=== PATIENT | male | born 1965 | race Caucasian/White ===

== ENCOUNTER 2017-06-08 05:12 | Day surgery (SDC) | payer BC ==
[2017-05-25 15:54] VITALS: BMI 29.5
[2017-06-08] MEDS ORDERED: BUPIVACAINE HCL/PF 0.5% (5MG/ML) 10 ML VIAL ONE (09:34)
[2017-06-08] MEDS ORDERED: oxyCODONE HCL 5 MG TABLET PO PRN (09:46)
[2017-06-08] MEDS ORDERED: ONDANSETRON 4 MG/2 ML VIAL IVPUSH PRN (09:46)
[2017-06-08] MEDS ORDERED: PROMETHAZINE HCL 25 MG/1 ML VIAL IVPUSH PRN (09:46)
--- NOTE | 2017-06-08 09:49 | HP ---
[facility]ellite [facility] - Chief Complaint Chief Complaint: right knee pain - Past Medical History Allergies/Adverse Reactions: Allergies Allergy/AdvReac Type Severity Reaction Status Date / Time latex Allergy Verified 06/08/17 08:36 No Known Drug Allergies Allergy Verified 06/08/17 08:36 - Current Medications Current Medications: Home Medications Medication Instructions Recorded Multivitamin [Multiple Vitamins] 1 each PO DAILY 05/25/17 Oxycodone HCl/Acetaminophen 1 - 2 tab PO Q6H #30 tab MDD 8 06/08/17 [Percocet 5-325 mg Tablet -] Satellite Physical Exam - Physical Examination Vital Signs: Vital Signs Period Temp Pulse Resp BP Sys/Lindsey Pulse Ox Last 24 Hr 97 General Appearance: Well Nourished, Well Developed, Alert & Oriented x3 ENT: Clear Lung: Normal air movement Heart: Regular rate & rhythm Extremities: Other (right knee- + swelling, + ttp, decr rom, + mcmurrays, nvi MRI + mt) Neurological: Intact, Alert, Oriented Satellite Impression/Plan - Impression/Plan Impression: right knee internal derangement Operative Procedure: right knee arthroscopy Date to be Performed: 06/08/17
[2017-06-08] MEDS ORDERED: MIDAZOLAM HCL 2 MG/2 ML SINGLE DOSE VIAL ONE (09:55)
[2017-06-08] MEDS ORDERED: LACTATED RINGERS SOLUTION 1,000 ML IV SCH (10:00)
[2017-06-08] MEDS ORDERED: DEXAMETHASONE SOD PHOSPHATE 4 MG/1 ML VIAL ONE (10:07)
[2017-06-08] MEDS ORDERED: LIDOCAINE HCL/PF 2% SDV 5ML VIAL ONE (10:07)
[2017-06-08] MEDS ORDERED: KETOROLAC TROMETHAMINE 30 MG/1 ML VIAL ONE (10:07)
[2017-06-08] MEDS ORDERED: LIDOCAINE 1%/EPI 1:100000 (20 ML MULTI DOSE VIAL) INF ONE (10:13)
--- NOTE | 2017-06-08 10:43 | OP ---
Operative Note - Note: Operative Date: 06/08/17 ([facility]) Pre-Operative Diagnosis: right knee internal derangement Operation: right knee arthroscopy PMM, debridement chondroplasty trochlea and MFC Post-Operative Diagnosis: Same as Pre-op Surgeon: Turner Conklin Anesthesiologist/RN HEMO DIALYSIS: Galilea Flanagan MD Anesthesia: General, Local Specimens Removed: shavings Estimated Blood Loss (mls): 5 Operative Report Dictated: Yes
[2017-06-08 11:14] VITALS: TEMP 98.3
[2017-06-08 12:04] VITALS: BP 148/90; PULSE 86
--- NOTE | 2017-06-08 13:11 | OP ---
DATE OF OPERATION: 06/08/2017 PREOPERATIVE DIAGNOSIS: Internal derangement, right knee. POSTOPERATIVE DIAGNOSIS: Internal derangement, right knee. PROCEDURE: Arthroscopy, right knee, partial medial meniscectomy and chondroplasty, medial femoral condyle and trochlea. SURGICAL ATTENDING: Turner Conklin MD ANESTHESIA: General with LMA. CLOSURE: Nylon 4-0. COMPLICATIONS: None. CONDITION: To recovery in stable condition. DESCRIPTION OF PROCEDURE: Patient taken to the operating room June 08, 2017. General anesthesia with LMA was administered by the anesthesiologist. Right lower extremity was prepped and draped in the usual sterile fashion. The medial and lateral infrapatellar portal sites were infiltrated with 1% Xylocaine with epinephrine. Portals were then made with a 15 blade followed by a blunt trocar and the scope trocar was placed through the inferolateral portal up into the suprapatellar pouch. The knee was then inflated with a cocktail of 10 mL of 1% Xylocaine, 10 mL of 0.5% Marcaine and 20 mL of arthroscopic saline. After allowing that to sit for a while, we then proceeded with the procedure. The undersurface of the patella was found to be intact. The trochlea itself had some grade 2 changes. Any loose articular cartilage was debrided using a shaver. The medial and lateral gutters were visualized to be clean. With valgus stress on the knee, the medial compartment was entered and the medial meniscus was visualized, probed and found to have a complex tear of its posterior horn. This was debrided back to smooth and stable meniscal tissue using a meniscal biter and an arthroscopic shaver. The medial femoral condyle had some areas of grade 3-4 changes, especially in its mid portion. Any loose articular cartilage was debrided with a shaver. Medial tibial plateau was basically intact. At 90 degrees, the ACL was visualized, probed, found to be intact. In the figure-4 position, the lateral compartment was entered. The lateral meniscus was visualized, probed and found to be intact. Lateral femoral condyle was run and found to be intact as was the lateral tibial plateau. The knee was irrigated with copious amounts of irrigation. Portals were closed using 4-0 nylon. Prior to closure, 20 mL of 0.5% Marcaine was infused through the scope trocar for postoperative analgesia. A sterile pressure dressing was placed over the knee. Patient awakened from anesthesia and transferred to recovery in stable condition. No complication. Estimated blood loss negligible. Beth MCCALLUM/[id number]
--- NOTE | 2017-06-15 17:12 | PATH ---
Surgical Pathology Report Patient Name: RAFFY DACOSTA [facility]. Rec. #: [id number] /Age/Gender: 1965 (Age: 51) / M Account: [id number] Location: [facility] Taken: 06/08/2017 Received: 06/08/2017 Reported: 06/15/2017 Physicians: Turner Conklin M.D. Specimen(s) Received RIGHT KNEE SHAVINGS Clinical History Meniscus tear right knee Final Diagnosis KNEE, RIGHT, ARTHROSCOPIC SHAVINGS: CARTILAGE SHOWING AGGREGATES OF CRYSTALLINE CALCIFIC MATERIAL, CONSISTENT WITH CHONDROCALCINOSIS (PSEUDOGOUT). FIBROSYNOVIAL AND FIBROCOLLAGENOUS TISSUE. Electronically Signed Jacqueline Beltre M.D. Gross Description Received in formalin, labeled "right knee shavings," is a 4.3 x 4.0 x 0.4 cm. aggregate of collins-yellow soft tissue fragments. A community health program representative portion is submitted in one cassette. 06/08/2017 saudi06/08/2017
== END 2017-06-08 12:04 | disposition home or self-care (01) ==
LOC: JASU-SURG 05:12
PROVIDERS: ATTEND Orthopaedic Surgery
PROC: 0SBC4ZZ Excision of Right Knee Joint, Percutaneous Endoscopic Approach (ICD-10-PCS; principal; 2017-06-08 09:30)
DX: M23.221 Derangement of posterior horn of medial meniscus due to old tear or injury, right knee (principal)
CPT/HCPCS: 88304-TC; 94760